=== PATIENT | female | born 1995 | race Caucasian/White ===

== ENCOUNTER → 2024-06-27 07:20 | Outpatient (REF) | payer BC, SELFPAY ==
[2024-06-27 08:55] LABS: % Basophils 0.5 % (0-2); % Eosinophils 0.7 % (0-6); % Immature Granulocytes 0.2 % (0-0.5); % Lymphocytes 18.5 % (20.5-51.1); % Monocytes 9.8 % (1.7-9.3); % Neutrophils 70.3 % (42.2-75.2); Absolute Eosinophils 0.1 10^3/uL (0-0.7); Absolute Lymphocytes 1.5 10^3/uL (1.2-3.4); Absolute Monocytes 0.8 10^3/uL (0.1-0.6); Absolute Neutrophils 5.7 10^3/uL (1.4-6.5); Hematocrit 38.6 % (37.0-47.0); Hemoglobin 12.9 g/dL (12.0-16.0); Mean Corp Hgb Conc. 33.4 g/dL (33.0-37.0); Mean Corpuscular Hgb 28.3 pg (27.0-31.0); Mean Corpuscular Volume 84.6 fL (81.0-99.0); Mean Platelet Volume 10.2 fL (7.4-10.4); Nucleated Red Blood Cells % 0 %; Platelet Count 243 10^3/uL (130-400); Red Blood Cell Count 4.56 10^6/uL (4.20-5.40); Red Cell Dist. Width 14.5 % (11.5-14.5); White Blood Cell Count 8.1 10^3/uL (4.8-10.8)
[2024-06-27 09:14] LABS: D-Dimer 0.47 ug/mlFEU (0.00-0.50)
[2024-06-27 10:50] LABS: Erythrocyte Sed Rate 10 mm/hour (0-20)
[2024-06-27 11:03] LABS: ALT (SGPT) 31 U/L (0-35); AST (SGOT) 41 U/L (14-36); Albumin 4.2 g/dl (3.5-5.0); Alkaline Phosphatase 92 U/L (38-126); Blood Urea Nitrogen 7 mg/dl (7-17); Calcium 9.5 mg/dl (8.4-10.2); Carbon Dioxide 24 mmol/L (22-30); Chloride 104 mmol/L (98-107); Glucose 79 mg/dl (70-99); HDL Cholesterol 57 mg/dl; LDL Cholesterol, Calculated 72 mg/dl; Potassium 4.3 mmol/L (3.5-5.1); Sodium 136 mmol/L (135-145); Total Bilirubin 0.9 mg/dl (0.2-1.3); Total Cholesterol 142 mg/dl (50-199); Total Protein 6.9 g/dl (6.3-8.2); Triglyceride 65 mg/dl (10-149); Very Low Density Lipoprotein 13 mg/dl (0-30); eGFR > 60.00
[2024-06-27 11:27] LABS: Vitamin D, 25-OH*** 30.1 ng/mL (30-80)
[2024-06-27 11:41] LABS: TSH Reflex To Free T4 1.38 uIU/ml (0.47-4.68)
[2024-06-28 15:22] LABS: Rheumatoid Agglutinin Less Than 10 IU (<10 IU)
[2024-06-29 01:08] LABS: ANA, IgG Reflex to HEp-2 Detected (None Detected)
[2024-06-30 00:43] LABS: ANA, HEp-2, IgG Detected (<1:80)
== END ==
LOC: REG 07:20
PROVIDERS: ATTENDING PHYSICIAN Nurse Practitioner Family
DX: M06.0 Rheumatoid arthritis without rheumatoid factor (principal); R79.89 Other specified abnormal findings of blood chemistry; Z85.71 Personal history of Hodgkin lymphoma; F41.1 Generalized anxiety disorder; K21.9 Gastro-esophageal reflux disease without esophagitis; E55.9 Vitamin D deficiency, unspecified
CPT/HCPCS: 36415; 80053; 80061; 82306; 84443; 85025; 85379; 85652; 86038; 86039; 86140; 86430

== ENCOUNTER → 2024-08-08 07:14 | Outpatient (REF) | payer BC, SELFPAY ==
[2024-08-09 14:09] LABS: Hepatitis B Surface Antigen Negative (Negative)
[2024-08-09 14:26] LABS: Hepatitis C Antibody Negative (Negative)
[2024-08-09 19:15] LABS: HIV Combo Negative (Negative)
[2024-08-10 09:14] LABS: SSA 52 (Ro)(ENA) Ab, IgG 1 AU/mL (0-40); SSA 60 (Ro)(ENA) Ab, IgG 1 AU/mL (0-40); SSB (La)(ENA) Ab, IgG 0 AU/mL (0-40)
[2024-08-10 17:25] LABS: Smith/RNP (ENA), IgG 6 Units (0-19)
[2024-08-10 22:54] LABS: ds-DNA Ab, IgG Reflex To Titer 14 IU (0-24)
[2024-08-11 05:40] LABS: Quantiferon Mitogen minus NIL 4.82 IU/mL; Quantiferon NIL 0.01 IU/mL; Quantiferon TB Gold Plus Negative (Negative)
== END ==
LOC: REG 07:14
PROVIDERS: ATTENDING PHYSICIAN Internal Medicine; FAMILY PHYSICIAN Family Medicine
DX: M08.80 Other juvenile arthritis, unspecified site (principal); R76.8 Other specified abnormal immunological findings in serum
CPT/HCPCS: 36415; 86225; 86235; 86480; 86705; 86803; 87340; 87389

== ENCOUNTER → 2024-09-12 08:42 | Outpatient (REF) | payer BC, SELFPAY ==
[2024-09-12 17:27] LABS: Urine Albumin Negative (Neg - Trace); Urine Bilirubin Negative (Negative); Urine Character Clear (Clear); Urine Color Yellow; Urine Glucose Negative (Negative); Urine Ketone Negative (Negative); Urine Leukocyte 2+ (Negative); Urine Nitrite Negative (Negative); Urine Occult Blood Trace (Negative); Urine Specific Gravity 1.005 (<1.030); Urine Urobilinogen Negative (Neg - 1+)
[2024-09-12 17:39] LABS: Urine Bacteria Moderate (Negative); Urine Red Blood Cell 0-2 /HPF (0-2)
== END ==
LOC: CLAB 08:42
PROVIDERS: ATTENDING PHYSICIAN Nurse Practitioner Family
DX: R30.0 Dysuria (principal)
CPT/HCPCS: 81003; 81015; 87086

== ENCOUNTER → 2024-09-19 07:03 | Outpatient (REF) | payer BC, SELFPAY ==
[2024-09-19 08:00] LABS: % Basophils 0.8 % (0-2); % Eosinophils 0.8 % (0-6); % Immature Granulocytes 0.2 % (0-0.5); % Lymphocytes 33.8 % (20.5-51.1); % Monocytes 8.2 % (1.7-9.3); % Neutrophils 56.2 % (42.2-75.2); Absolute Basophils 0.1 10^3/uL (0-0.2); Absolute Eosinophils 0.1 10^3/uL (0-0.7); Absolute Lymphocytes 2.9 10^3/uL (1.2-3.4); Absolute Monocytes 0.7 10^3/uL (0.1-0.6); Absolute Neutrophils 4.8 10^3/uL (1.4-6.5); Hematocrit 39.2 % (37.0-47.0); Mean Corp Hgb Conc. 33.2 g/dL (33.0-37.0); Mean Corpuscular Hgb 28.3 pg (27.0-31.0); Mean Corpuscular Volume 85.2 fL (81.0-99.0); Mean Platelet Volume 9.5 fL (7.4-10.4); Nucleated Red Blood Cells % 0 %; Platelet Count 327 10^3/uL (130-400); White Blood Cell Count 8.5 10^3/uL (4.8-10.8)
[2024-09-19 08:33] LABS: ALT (SGPT) 16 U/L (0-35); AST (SGOT) 21 U/L (14-36); Albumin 4.1 g/dl (3.5-5.0); Alkaline Phosphatase 65 U/L (38-126); Blood Urea Nitrogen 8 mg/dl (7-17); Calcium 9.4 mg/dl (8.4-10.2); Carbon Dioxide 25 mmol/L (22-30); Chloride 103 mmol/L (98-107); Glucose 100 mg/dl (70-99); Sodium 143 mmol/L (135-145); Total Bilirubin < 0.1 mg/dl (0.2-1.3); Total Protein 6.9 g/dl (6.3-8.2); eGFR > 60.00
== END ==
LOC: REG 07:03
PROVIDERS: ATTENDING PHYSICIAN Internal Medicine; FAMILY PHYSICIAN Family Medicine
DX: Z51.81 Encounter for therapeutic drug level monitoring (principal); Z79.631 Long term (current) use of antimetabolite agent
CPT/HCPCS: 36415; 80053; 85025

== ENCOUNTER → 2024-11-01 07:13 | Outpatient (REF) | payer BC, SELFPAY ==
[2024-11-01 07:49] LABS: % Basophils 0.6 % (0-2); % Eosinophils 1.2 % (0-6); % Immature Granulocytes 0.1 % (0-0.5); % Lymphocytes 32.5 % (20.5-51.1); % Monocytes 9.5 % (1.7-9.3); % Neutrophils 56.1 % (42.2-75.2); Absolute Eosinophils 0.1 10^3/uL (0-0.7); Absolute Lymphocytes 2.2 10^3/uL (1.2-3.4); Absolute Monocytes 0.7 10^3/uL (0.1-0.6); Absolute Neutrophils 3.8 10^3/uL (1.4-6.5); Hematocrit 40.9 % (37.0-47.0); Hemoglobin 13.3 g/dL (12.0-16.0); Mean Corp Hgb Conc. 32.5 g/dL (33.0-37.0); Mean Corpuscular Hgb 28.3 pg (27.0-31.0); Mean Platelet Volume 9.6 fL (7.4-10.4); Nucleated Red Blood Cells % 0 %; Platelet Count 257 10^3/uL (130-400); Red Cell Dist. Width 16.2 % (11.5-14.5); White Blood Cell Count 6.8 10^3/uL (4.8-10.8)
[2024-11-01 08:21] LABS: ALT (SGPT) 27 U/L (0-35); AST (SGOT) 28 U/L (14-36); Albumin 4.6 g/dl (3.5-5.0); Alkaline Phosphatase 57 U/L (38-126); Blood Urea Nitrogen 8 mg/dl (7-17); Calcium 9.7 mg/dl (8.4-10.2); Carbon Dioxide 30 mmol/L (22-30); Chloride 103 mmol/L (98-107); Glucose 81 mg/dl (70-99); Potassium 4.5 mmol/L (3.5-5.1); Sodium 141 mmol/L (135-145); Total Bilirubin 0.4 mg/dl (0.2-1.3); Total Protein 7.1 g/dl (6.3-8.2); eGFR > 60.00
== END ==
LOC: REG 07:13
PROVIDERS: ATTENDING PHYSICIAN Internal Medicine; FAMILY PHYSICIAN Family Medicine
DX: Z51.81 Encounter for therapeutic drug level monitoring (principal); Z79.631 Long term (current) use of antimetabolite agent
CPT/HCPCS: 36415; 80053; 85025

== ENCOUNTER → 2025-01-01 07:11 | Outpatient (REF) | payer BC, SELFPAY ==
[2025-01-01 08:46] LABS: % Basophils 0.6 % (0-2); % Eosinophils 0.8 % (0-6); % Immature Granulocytes 0.2 % (0-0.5); % Lymphocytes 22.8 % (20.5-51.1); % Monocytes 7.7 % (1.7-9.3); % Neutrophils 67.9 % (42.2-75.2); Absolute Basophils 0.1 10^3/uL (0-0.2); Absolute Eosinophils 0.1 10^3/uL (0-0.7); Absolute Monocytes 0.7 10^3/uL (0.1-0.6); Absolute Neutrophils 5.8 10^3/uL (1.4-6.5); Hematocrit 38.6 % (37.0-47.0); Hemoglobin 12.7 g/dL (12.0-16.0); Mean Corp Hgb Conc. 32.9 g/dL (33.0-37.0); Mean Corpuscular Hgb 28.6 pg (27.0-31.0); Mean Corpuscular Volume 86.9 fL (81.0-99.0); Nucleated Red Blood Cells % 0 %; Platelet Count 274 10^3/uL (130-400); Red Blood Cell Count 4.44 10^6/uL (4.20-5.40); Red Cell Dist. Width 15.9 % (11.5-14.5); White Blood Cell Count 8.5 10^3/uL (4.8-10.8)
[2025-01-01 09:21] LABS: ALT (SGPT) 43 U/L (0-35); AST (SGOT) 34 U/L (14-36); Alkaline Phosphatase 76 U/L (38-126); Blood Urea Nitrogen 9 mg/dl (7-17); Calcium 9.3 mg/dl (8.4-10.2); Carbon Dioxide 26 mmol/L (22-30); Chloride 103 mmol/L (98-107); Glucose 115 mg/dl (70-99); Potassium 4.5 mmol/L (3.5-5.1); Sodium 138 mmol/L (135-145); Total Bilirubin 0.4 mg/dl (0.2-1.3); Total Protein 6.5 g/dl (6.3-8.2); eGFR > 60.00
== END ==
LOC: REG 07:11
PROVIDERS: ATTENDING PHYSICIAN Internal Medicine; FAMILY PHYSICIAN Family Medicine
DX: Z51.81 Encounter for therapeutic drug level monitoring (principal); Z79.631 Long term (current) use of antimetabolite agent
CPT/HCPCS: 36415; 80053; 85025

== ENCOUNTER → 2025-03-26 07:27 | Outpatient (REF) | payer BC, SELFPAY ==
[2025-03-26 08:04] LABS: % Eosinophils 1.5 % (0-6); % Immature Granulocytes 0.2 % (0-0.5); % Lymphocytes 22.5 % (20.5-51.1); % Monocytes 11.2 % (1.7-9.3); % Neutrophils 63.6 % (42.2-75.2); Absolute Basophils 0.1 10^3/uL (0-0.2); Absolute Eosinophils 0.1 10^3/uL (0-0.7); Absolute Lymphocytes 1.4 10^3/uL (1.2-3.4); Absolute Monocytes 0.7 10^3/uL (0.1-0.6); Absolute Neutrophils 3.9 10^3/uL (1.4-6.5); Hemoglobin 12.8 g/dL (12.0-16.0); Mean Corp Hgb Conc. 32.8 g/dL (33.0-37.0); Mean Corpuscular Hgb 28.8 pg (27.0-31.0); Mean Corpuscular Volume 87.6 fL (81.0-99.0); Mean Platelet Volume 10.2 fL (7.4-10.4); Nucleated Red Blood Cells % 0 %; Platelet Count 266 10^3/uL (130-400); Red Blood Cell Count 4.45 10^6/uL (4.20-5.40); Red Cell Dist. Width 15.9 % (11.5-14.5); White Blood Cell Count 6.2 10^3/uL (4.8-10.8)
[2025-03-26 08:35] LABS: ALT (SGPT) 24 U/L (0-35); AST (SGOT) 29 U/L (14-36); Albumin 4.2 g/dl (3.5-5.0); Alkaline Phosphatase 53 U/L (38-126); Blood Urea Nitrogen 10 mg/dl (7-17); Calcium 9.7 mg/dl (8.4-10.2); Carbon Dioxide 31 mmol/L (22-30); Chloride 104 mmol/L (98-107); Glucose 82 mg/dl (70-99); Potassium 4.8 mmol/L (3.5-5.1); Sodium 140 mmol/L (135-145); Total Bilirubin 0.7 mg/dl (0.2-1.3); Total Protein 6.6 g/dl (6.3-8.2); eGFR > 60.00
== END ==
LOC: REG 07:27
PROVIDERS: ATTENDING PHYSICIAN Internal Medicine; FAMILY PHYSICIAN Family Medicine
DX: Z51.81 Encounter for therapeutic drug level monitoring (principal); Z79.631 Long term (current) use of antimetabolite agent
CPT/HCPCS: 36415; 80053; 85025

== ENCOUNTER → 2025-09-03 06:57 | Outpatient (REF) | payer BC, SELFPAY ==
[2025-09-03 08:01] LABS: Hematocrit 37.4 % (37.0-47.0); Hemoglobin 11.7 g/dL (12.0-16.0); Mean Corp Hgb Conc. 31.3 g/dL (33.0-37.0); Mean Corpuscular Volume 85.6 fL (81.0-99.0); Nucleated Red Blood Cells % 0 %; Platelet Count 255 10^3/uL (130-400); Red Cell Dist. Width 17.0 % (11.5-14.5)
[2025-09-03 08:24] LABS: ALT (SGPT) 19 U/L (0-35); AST (SGOT) 22 U/L (14-36); Albumin 4.2 g/dl (3.5-5.0); Alkaline Phosphatase 54 U/L (38-126); Total Protein 6.9 g/dl (6.3-8.2)
== END ==
LOC: REG 06:57
PROVIDERS: ATTENDING PHYSICIAN Internal Medicine
DX: Z51.81 Encounter for therapeutic drug level monitoring (principal); Z79.631 Long term (current) use of antimetabolite agent
CPT/HCPCS: 36415; 80076; 82565; 85025